=== PATIENT | male | born 1945 | race Caucasian/White ===

== ENCOUNTER 2017-12-25 16:50 | Observation (INO) ==
[2017-12-25] MEDS ORDERED: 0.9 % Sodium Chloride 500 ML IVC ONE (17:20)
--- NOTE | 2017-12-25 17:36 | Emergency Department Note ---
Disposition Clinical Impression: Metabolic acidosis, Hyperkalemia, Acute on chronic renal insufficiency Disposition: Admitted As Inpatient Condition: Fair Time of Disposition: 19:25 Recheck wound or abnormal lab - General Chief Complaint: ED Recheck/Abnormal Lab/Rx Stated Complaint: ABNORMAL TEST Time Seen by Provider: 12/25/17 16:56 Source: patient Limitations: no limitations Nursing Notes Reviewed: Yes Vital Signs Reviewed: Yes - History of Present Illness HPI Narrative: 72-year-old male history of hypertension, COPD, diabetes, hyperlipidemia, presents complaining of lab abnormality. Patient states that he has not had any complaints initially was feeling a little bit shaky dehydrated this week. Patient has been supplemented with potassium as well. For cramps. The patient states that he has had his blood checked by [facility] nurse practitioner and they said that his potassium was 6.7, patient denies chest pain shortness of breath abdominal pain. He is not having dysuria or hematuria he has had no recent fevers. He came in for this evaluation he does have some known chronic kidney disease, is on multiple medications for his multiple medical conditions. Pt Subjective Complaint: abnormal lab(s) (K 6.7) Initial Visit (ago): day(s) Symptoms Since Prior Visit: no new symptoms Associated symptoms: none - Related Data Home Medications Medication Instructions Recorded Confirmed Albuterol Sulfate [Ventolin Hfa] 2 puff IH Q4H PRN 12/25/17 12/25/17 Doxazosin [Cardura] 4 mg PO HS 12/25/17 12/25/17 Glimepiride [Amaryl] 4 mg PO DAILY 12/25/17 12/25/17 Lisinopril [Zestril] 20 mg PO BID 12/25/17 12/25/17 Lovastatin [Lovastatin] 40 mg PO HS 12/25/17 12/25/17 Metoprolol Succinate 200 mg PO DAILY 12/25/17 12/25/17 Pioglitazone HCl [Actos] 30 mg PO DAILY 12/25/17 12/25/17 Spironolactone [Aldactone] 50 mg PO DAILY 12/25/17 12/25/17 Allergies Allergy/AdvReac Type Severity Reaction Status Date / Time No Known Allergies Allergy Verified 12/25/17 18:37 All systems ED: reviewed and negative except as stated. Review of Systems: As Per HPI Constitutional: Denies: fever, chills Eyes: Denies: eye pain ENT ED: Denies: ear pain Cardiovascular: Denies: chest pain Respiratory: Denies: cough Gastrointestinal: Denies: abdominal pain Genitourinary: Denies: urgency, dysuria Musculoskeletal: Denies: back pain Integumentary: Denies: rash Neurological: Denies: headache Psychiatric: Denies: anxiety, depression Endocrine: Denies: fatigue Past Medical History - Past Medical History Attestation: Yes The following information was validated with the patient. Source: patient Medical history: Reports: cancer, COPD, hypertension Surgical history: Reports: other Psychiatric history: Reports: no psych history - Social History Smoking Status: Never smoker Alcohol use: Reports: occasionally Drug use: Reports: none Physical Exam Constitutional: NAD, vital signs reviewed and wnl Eyes: PERRLA, sclera anicteric ENT & Mouth: MMM Neck: normal inspection, neck is supple Resp: CTA bilaterally, no resp distress CV: RRR, no m/g/r GI: normal inspection, soft, obese, no guarding or rigidity Neuro: A&O3, CNII-XII grossly intact, MANZANO Skin: on limited exam, skin intact with no rashes or lesions - General Limitations: no limitations Course Course Narrative: Patient acute distress at this time will repeat chest x-ray, basic lab work recheck his potassium and electrolytes, also checking an EKG to see if he is evidence of hyperkalemia on his EKG. - Reevaluation(s) Reevaluation #1: Patient did have hyperkalemia still 6.6, the patient will be given calcium gluconate insulin with dextrose albuterol and sodium bicarbonate to correct his K, and may be due to supplementation but he also has acidemia, at the VBG and a lactate, the patient has a acute on chronic kidney injury with a 2.1 creatinine its worse than earlier today, I did consult nephrology and spoke with Dr. Goss feel will see the patient tomorrow, patient will be admitted to the hospitalist service Dr. Madrigal accepting Time: 19:24 - Consultations Consultation #1: Ana Paula to see inpatient Vital Signs Temperature 98.0 F 12/25/17 16:51 Pulse Rate 88 12/25/17 16:51 Respiratory Rate 22 12/25/17 16:51 Blood Pressure 207/64 12/25/17 16:51 O2 Sat by Pulse Oximetry 93 12/25/17 16:51 Temperature 98.0 F 12/25/17 16:58 Pulse Rate 88 12/25/17 16:58 Respiratory Rate 22 12/25/17 16:58 Blood Pressure 207/64 12/25/17 16:58 O2 Sat by Pulse Oximetry 93 12/25/17 16:58 Oxygen Delivery Oxygen Delivery Room Air Recheck wound or abnormal lab - Medical Records Medical records reviewed: Yes I reviewed the patient's medical records. - Lab Data Lab results reviewed: Yes I reviewed the patient's lab results. Result diagrams: 12/25/17 17:20 12/25/17 17:20 Lab Results 12/25/17 12/25/17 12/25/17 Range/Units 17:20 17:20 18:26 WBC 9.5 (4.3-11.1) K/mcL RBC 3.83 L (4.19-5.50) M/mcL Hgb 11.9 L (12.9-16.9) g/dL Hct 38.1 (37.5-50.1) % MCV 99.5 (83.0-100.0) fL MCH 31.1 (28.0-33.3) pg MCHC 31.2 L (31.6-35.5) g/dL RDW 15.5 H (11.5-14.5) % Plt Count 192 (140-400) K/mcL MPV 10.0 (9.4-12.4) fL Immature Gran % 0.4 (0-4) % Seg Neutrophils % 65.6 % Lymphocytes % 23.9 % Monocytes % 7.7 % Eosinophils % 2.0 % Basophils % 0.4 % Neutrophils # 6.2 (1.6-8.9) K/mcL Lymphocytes # 2.3 (0.6-4.6) K/mcL Monocytes # 0.7 (0.0-1.3) K/mcL Eosinophils # 0.2 (0.0-0.6) K/mcL Basophils # 0.0 (0.0-0.2) K/mcL Sodium 135 L (136-145) mEq/L Potassium 6.6 H* (3.5-5.1) mEq/L Chloride 115 H (98-107) mEq/L Carbon Dioxide 14 L (23-29) mEq/L BUN 40 H (8-23) mg/dL Creatinine 2.11 H (0.70-1.30) mg/dL Est GFR ( Amer) 38 L (> 60) Est GFR (Non-Af Amer) 31 L (> 60) BUN/Creatinine Ratio 19 (6-26) Glucose 102 (70-105) mg/dL Calculated Osmolality 290 (280-300) Lactic Acid 0.6 (0.5-2.2) mmol/L Calcium 9.4 (8.6-10.3) mg/dL Troponin I < 0.03 (< 0.04) ng/mL - Radiology Data Radiology results reviewed: Yes I reviewed the patient's radiology results. Chest X-Ray 12/25/17 17:20 IMPRESSION: Cardiomegaly without acute process. D/ / 12/25/2017 17:35:09 Familia Acevedo MD / arsen Interpreting Provider: Familia Acevedo MD - EKG Data EKG attestation: Yes I reviewed and interpreted this EKG. EKG shows normal: sinus rhythm Rate: normal (70 bpm MI 173 QRS 133 QTc [address] segment changes, right bundle branch block, no Peaked T waves.)
[2017-12-25 17:56] LABS: Basophils % 0.4 %; Eosinophils # 0.2 K/mcL (0.0-0.6); Hematocrit 38.1 % (37.5-50.1); Hemoglobin 11.9 g/dL (12.9-16.9); Immature Granulocytes % 0.4 % (0-4); Lymphocytes # 2.3 K/mcL (0.6-4.6); Lymphocytes % 23.9 %; Mean Corpuscular HGB Conc 31.2 g/dL (31.6-35.5); Mean Corpuscular Hemoglobin 31.1 pg (28.0-33.3); Mean Corpuscular Volume 99.5 fL (83.0-100.0); Monocytes # 0.7 K/mcL (0.0-1.3); Monocytes % 7.7 %; Neutrophils # 6.2 K/mcL (1.6-8.9); Platelet Count 192 K/mcL (140-400); Red Blood Count 3.83 M/mcL (4.19-5.50); Red Cell Distribution Width 15.5 % (11.5-14.5); Segmented Neutrophils % 65.6 %
[2017-12-25 18:04] LABS: Troponin I < 0.03 ng/mL (< 0.04)
[2017-12-25 18:08] LABS: BUN/Creatinine Ratio 19 (6-26); Blood Urea Nitrogen 40 mg/dL (8-23); Calcium 9.4 mg/dL (8.6-10.3); Carbon Dioxide 14 mEq/L (23-29); Chloride 115 mEq/L (98-107); Glucose 102 mg/dL (70-105); Osmolality,Calculated 290 (280-300); Potassium 6.6 mEq/L (3.5-5.1); Sodium 135 mEq/L (136-145); eGFR For African Americans 38 (> 60); eGFR For Non-African Americans 31 (> 60)
[2017-12-25] MEDS ORDERED: Insulin Human Regular 10 UNIT in 0.9 % Sodium Chloride 10 ML IV ONE (18:14)
[2017-12-25] MEDS ORDERED: Sodium Bicarbonate 50 MEQ/50 ML VIAL IVP ONE (18:14)
[2017-12-25] MEDS ORDERED: Albuterol Neb 1.25 MG/3 ML VIAL IH ONE (18:14)
[2017-12-25] MEDS ORDERED: *HR* Dextrose 50 % in Water (Syg) 50 ML SYRINGE IVP ONE (18:16)
[2017-12-25 18:41] LABS: VBG HCO3 13 mEq/L (21-27); VBG PCO2 32 mmHg (41-51); VBG PH 7.23 pH Units (7.32-7.42); VBG PO2 168 mmHg (25-50)
--- NOTE | 2017-12-25 18:59 | Emergency Department Note ---
Disposition Clinical Impression: Hyperkalemia, Metabolic acidosis, Acute on chronic renal insufficiency Disposition: Admitted As Inpatient Condition: Fair General Adult HPI - General Chief complaint: ED Recheck/Abnormal Lab/Rx Stated complaint: ABNORMAL TEST Time Seen by Provider: 12/25/17 16:56 Source: patient Limitations: no limitations - History of Present Illness Pain Scale: 0 - Related Data Home Medications Medication Instructions Recorded Confirmed Albuterol Sulfate [Ventolin Hfa] 2 puff IH Q4H PRN 12/25/17 12/25/17 Doxazosin [Cardura] 4 mg PO HS 12/25/17 12/25/17 Glimepiride [Amaryl] 4 mg PO DAILY 12/25/17 12/25/17 Lisinopril [Zestril] 20 mg PO BID 12/25/17 12/25/17 Lovastatin [Lovastatin] 40 mg PO HS 12/25/17 12/25/17 Metoprolol Succinate 200 mg PO DAILY 12/25/17 12/25/17 Pioglitazone HCl [Actos] 30 mg PO DAILY 12/25/17 12/25/17 Spironolactone [Aldactone] 50 mg PO DAILY 12/25/17 12/25/17 Allergies Allergy/AdvReac Type Severity Reaction Status Date / Time No Known Allergies Allergy Verified 12/25/17 18:37 Past Medical History - Past Medical History Medical history: Reports: cancer, COPD, hypertension Surgical history: Reports: other Psychiatric history: Reports: no psych history - Social History Smoking Status: Never smoker Alcohol use: Reports: occasionally Drug use: Reports: none Physical Exam - General Limitations: no limitations Course Vital Signs Temperature 98.0 F 12/25/17 16:51 Pulse Rate 88 12/25/17 16:51 Respiratory Rate 22 12/25/17 16:51 Blood Pressure 207/64 12/25/17 16:51 O2 Sat by Pulse Oximetry 93 12/25/17 16:51 Temperature 98.0 F 12/25/17 16:58 Pulse Rate 88 12/25/17 16:58 Respiratory Rate 10 12/25/17 19:11 Blood Pressure 167/66 12/25/17 19:11 O2 Sat by Pulse Oximetry 93 12/25/17 16:58 Oxygen Delivery Oxygen Delivery Nasal Cannula Medical Decision Making - Lab Data Result diagrams: 12/25/17 17:20 12/25/17 17:20 Lab Results 12/25/17 12/25/17 12/25/17 Range/Units 17:20 17:20 18:26 WBC 9.5 (4.3-11.1) K/mcL RBC 3.83 L (4.19-5.50) M/mcL Hgb 11.9 L (12.9-16.9) g/dL Hct 38.1 (37.5-50.1) % MCV 99.5 (83.0-100.0) fL MCH 31.1 (28.0-33.3) pg MCHC 31.2 L (31.6-35.5) g/dL RDW 15.5 H (11.5-14.5) % Plt Count 192 (140-400) K/mcL MPV 10.0 (9.4-12.4) fL Immature Gran % 0.4 (0-4) % Seg Neutrophils % 65.6 % Lymphocytes % 23.9 % Monocytes % 7.7 % Eosinophils % 2.0 % Basophils % 0.4 % Neutrophils # 6.2 (1.6-8.9) K/mcL Lymphocytes # 2.3 (0.6-4.6) K/mcL Monocytes # 0.7 (0.0-1.3) K/mcL Eosinophils # 0.2 (0.0-0.6) K/mcL Basophils # 0.0 (0.0-0.2) K/mcL Sodium 135 L (136-145) mEq/L Potassium 6.6 H* (3.5-5.1) mEq/L Chloride 115 H (98-107) mEq/L Carbon Dioxide 14 L (23-29) mEq/L BUN 40 H (8-23) mg/dL Creatinine 2.11 H (0.70-1.30) mg/dL Est GFR ( Amer) 38 L (> 60) Est GFR (Non-Af Amer) 31 L (> 60) BUN/Creatinine Ratio 19 (6-26) Glucose 102 (70-105) mg/dL Calculated Osmolality 290 (280-300) Lactic Acid 0.6 (0.5-2.2) mmol/L Calcium 9.4 (8.6-10.3) mg/dL Troponin I < 0.03 (< 0.04) ng/mL Attestation Statement - Attestation Attestation: I examined this patient and my medical decision-making was reviewed with the Resident Physician, Dr. Velarde. I agree with the documented findings, disposition and treatment plan as described except to the extent set forth below. Patient is 72-year-old white male who presents to emergency department been sent here for an elevated potassium. PCPs office. Patient has no physical complaints today states he has been feeling fine. Patient also states he has been taking potassium supplements that he bought at the grocery store for the past 2 weeks for leg cramping he has been experiencing bilateral lower extremities. Patient has never had an elevated potassium in the past but does have some underlying chronic kidney disease. I agree with patient's physical exam findings as documented. Vital signs are stable with mildly elevation in blood pressure on arrival. His EKG was normal sinus rhythm with no acute changes and no QRS widening or changes consistent with hyperkalemia. Patient had lab evaluation performed which showed a worsening of his chronic kidney disease with metabolic acidosis and hyperkalemia. Patient will be treated with patient's appropriate for hyperkalemia and continued on cardiac monitoring. Due to chronic kidney disease we well admit him to the hospital for monitored evaluation and really check of his potassium. Case was discussed with the hospitalist to accepted patient for further evaluation and management.
[2017-12-25] MEDS ORDERED: Acetaminophen 325 MG TABLET PO PRN (19:56)
[2017-12-25] MEDS ORDERED: Naloxone 0.4 MG/ML INJ IVP PRN (19:56)
[2017-12-25] MEDS ORDERED: *HR* Dextrose 50 % in Water (Syg) 50 ML SYRINGE IVP PRN (19:59)
[2017-12-25] MEDS ORDERED: Dextrose Gel 15 GM/37.5 ML TUBE PO PRN ×2 (19:59)
[2017-12-25] MEDS ORDERED: D5% in Water 1,000 ML IVC PRN (19:59)
[2017-12-25] MEDS ORDERED: 0.9 % Sodium Chloride 1,000 ML IVC SCH (20:00)
--- NOTE | 2017-12-25 20:31 | Internal Med History&Physical ---
Date of Encounter: 12/25/17 Time of Encounter: 19:00 Internal Medicine - H&P: HPI Chief complaint: High potassium level Admitted From: Home Plans for Post Hospital Care: Home History of present illness: Mr. Casper is a 72 year old male send from PCP office to ER for high potassium level. Past medical history is significant for diabetes, hypertension , hyperlipidemia, COPD Patient had regular follow-up with PCP today. He was found potassium high and referred to ER for further management. Patient recently took [id number] potassium pills for leg cramping in last 10 days. Patient denies chest pain, shortness of breath, palpitation, abdominal pain, nausea, or vomiting. He has no further complaint. In the emergency room, potassium 6.6. Patient was given calcium IV, albuterol nebulizer, insulin with glucose, and bicarbonate in the emergency room. EKG shows no typical high T-wave. Patient was admitted for further management. I have discussed with patient regarding CODE STATUS. Patient clearly told me he does not want CPR but accept intubation, DNR CCA placed. Past Med Surg Social Fam HX - Past Medical History Medical history: cancer, COPD, diabetes, glaucoma, hyperlipidemia, hypertension Additional medical history: see attached records. 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 Psychiatric history: no psych history - Past Surgical History Surgical History: other Additional surgical history: rectal sx, carotid endarectomy - Social History Smoking Status: Former smoker Smokeless Tobacco Status: No Alcohol use: occasionally Drug use: none - Family History Mother History Unknown: Yes Internal Medicine - H&P: Meds Albuterol Sulfate [Ventolin Hfa] 2 puff IH Q4H PRN 12/25/17 [History] Doxazosin [Cardura] 4 mg PO HS 12/25/17 [History] Glimepiride [Amaryl] 4 mg PO DAILY 12/25/17 [History] Lisinopril [Zestril] 20 mg PO BID 12/25/17 [History] Lovastatin [Lovastatin] 40 mg PO HS 12/25/17 [History] Metoprolol Succinate 200 mg PO DAILY 12/25/17 [History] Pioglitazone HCl [Actos] 30 mg PO DAILY 12/25/17 [History] Spironolactone [Aldactone] 50 mg PO DAILY 12/25/17 [History] 3 Allergy/AdvReac Type Severity Reaction Status Date / Time No Known Allergies Allergy Verified 12/25/17 18:37 All Systems PM: A 10-system review of systems was performed and is negative for pertinent findings except as documented above in the HPI. - Constitutional Vitals: Temp Pulse Resp BP Pulse Ox 98.0 F 88 10 167/66 93 12/25/17 16:58 12/25/17 16:58 12/25/17 19:11 12/25/17 19:11 12/25/17 16:58 General appearance: Present: A&O X 3, no acute distress, obese, answers questions appropriately - Head Head exam: Present: atraumatic, normocephalic - Eye Eye exam: Present: PERRL, conjuntiva pink, sclera anicteric Pupils: Present: PERRL - Neck Neck exam general surgery: Present: supple, trachea midline. Absent: lymphadenopathy - Respiratory Respiratory exam: Present: CTAB. Absent: accessory muscle use, rales, rhonchi, wheezes - Cardiovascular Cardiovascular exam: Present: RRR, +S1, +S2. Absent: diastolic murmur, gallop, rubs, systolic murmur - GI/Abdominal GI/Abdominal exam: Present: normal bowel sounds, soft, no peritoneal signs. Absent: distended, tenderness - Extremities Exam Extremities exam: Present: pedal edema (Bilateral mild to moderate pedal edema) , warm, radial pulses palpable and symmetrical. Absent: calf tenderness, cyanotic - Neurological Exam Neurological exam: Present: CN II-XII intact, oriented X3, no focal deficits. Absent: pronater drift, facial droop, speech deficit - Skin Skin exam: Present: dry, intact Internal Med - H&P Results - Labs CBC & Chem 7: 12/25/17 17:20 12/25/17 17:20 - ABG Interpretation ABG results: 12/25/17 18:38 VBG pH 7.23 L VBG pCO2 32 L VBG pO2 168 H VBG HCO3 13 L - EKG Data -: EKG Interpreted by Myself (RBBB) EKG shows normal: sinus rhythm Rate: normal - Assessment and plan (1) Diabetes mellitus Current Visit: Yes Status: Acute Assessment and plan: Place patient on sliding scale insulin coverage. Qualifiers: Diabetes mellitus type: type 2 Diabetes mellitus care home insulin use: without dedicated intermodal truck driver use Diabetes mellitus complication status: with kidney complications Diabetes mellitus complication detail: with chronic kidney disease Chronic kidney disease stage: stage 3 (moderate) Qualified Code(s): E11.22 - Type 2 diabetes mellitus with diabetic chronic kidney disease; N18.3 - Chronic kidney disease, stage 3 (moderate) (2) Hypertension Current Visit: Yes Status: Acute Assessment and plan: We will hold the patient's home medication lisinopril and spironolactone because of hyperkalemia. Place patient on hydralazine by mouth and IV as needed. Continue home medication metoprolol. Closely monitor BP. Qualifiers: Hypertension type: essential hypertension Qualified Code(s): I10 - Essential (primary) hypertension (3) COPD (chronic obstructive pulmonary disease) Current Visit: Yes Status: Acute Assessment and plan: No wheezing. Continue home medications. Continue oxygen as needed Qualifiers: COPD type: emphysema Emphysema type: unspecified Qualified Code(s): J43.9 - Emphysema, unspecified (4) DVT prophylaxis Current Visit: Yes Status: Acute Assessment and plan: Heparin subcutaneously (5) Acute on chronic renal insufficiency Current Visit: Yes Status: Acute Assessment and plan: Patient has mild elevated creatinine from baseline. Will give patient low rate IV fluid with lactated Ringer's solution. Avoid nephrotoxic medications. Follow-up renal function in a.m. (6) Hyperkalemia Current Visit: Yes Status: Acute Assessment and plan: Patient has hyperkalemia, probably due to by mouth potassium supplement together with spironolactone use. Patient was treated in emergency room already. Will give patient Kayexalate by mouth once. Follow potassium level. Nephrology consult was informed. (7) Metabolic acidosis Current Visit: Yes Status: Acute Assessment and plan: Bicarbonate 14 on BMP. Patient was given bicarbonate IV in ER. Will continue lactated Ringer IV fluid. Follow-up BMP. Nephrology consult. - Time Spent With Patient Total time spent is greater than 50% in coordination of care (as documented) at patient's floor/unit and/or counseling patient: 40 minutes Greater than 35 minutes
[2017-12-25] MEDS ORDERED: Ringers Solution, Lactated 1,000 ML IVC SCH (20:45)
[2017-12-25 22:41] LABS: Bilirubin,Urine Negative (Negative); Blood,Urine Negative (Negative); Clarity,Urine Clear (Clear); Color,Urine Yellow (Yellow); Glucose,Urine (UA) Normal (Normal); Ketones,Urine Negative (Negative); Leukocyte Esterase,Urine Negative (Negative); Nitrite,Urine Negative (Negative); PH,Urine 5.5 pH Units (5.0-8.0); Protein,Urine Negative (Neg-Trace); Urobilinogen,Urine Normal (Normal)
[2017-12-25] MEDS: Insulin LISPRO 300 UNITS/3 ML VIAL SQ SCH (23:37)
[2017-12-26] MEDS: hydrALAZINE 25 MG TABLET PO SCH ×3 (00:04→16:44)
[2017-12-26] MEDS: *HR* Heparin 5,000 UNIT/ML VIAL SQ SCH ×2 (05:11→16:44)
[2017-12-26 05:48] LABS: Calcium 8.9 mg/dL (8.6-10.3); Potassium 5.8 mEq/L (3.5-5.1)
[2017-12-26] MEDS: Metoprolol XL (24 HR) Succ 50 MG TAB.ER.24H PO SCH (08:20)
[2017-12-26] MEDS: Insulin LISPRO 300 UNITS/3 ML VIAL SQ SCH ×4 (08:22→21:20)
--- NOTE | 2017-12-26 08:46 | Internal Med Progress Note ---
Date of Encounter: 12/26/17 Time of Encounter: 08:40 - Assessment and plan (1) Hyperkalemia Current Visit: Yes Status: Acute Assessment and plan: Patient has hyperkalemia, probably due to potassium supplement and spironolactone use. Patient received calcium gluconate, insulin and D50, and sodium bicarb in ER. Got kayexalate overnight. Will give another dose of kayexalate today. Repeat BMP. Appreciate renal recs (2) Metabolic acidosis Current Visit: Yes Status: Acute Assessment and plan: Bicarbonate 14 on BMP. Patient was given bicarbonate IV in ER. Will continue lactated Ringer IV fluid. Follow-up BMP. Nephrology consult. (3) Acute on chronic renal insufficiency Current Visit: Yes Status: Acute Assessment and plan: Patient has mild elevated creatinine from baseline. Will give patient low rate IV fluid with lactated Ringer's solution. Avoid nephrotoxic medications. Follow-up renal function in a.m. (4) Diabetes mellitus Current Visit: Yes Status: Acute Assessment and plan: Place patient on sliding scale insulin coverage. Qualifiers: Diabetes mellitus type: type 2 Diabetes mellitus fdc insulin use: without fdc use Diabetes mellitus complication status: with kidney complications Diabetes mellitus complication detail: with chronic kidney disease Chronic kidney disease stage: stage 3 (moderate) Qualified Code(s): E11.22 - Type 2 diabetes mellitus with diabetic chronic kidney disease; N18.3 - Chronic kidney disease, stage 3 (moderate) (5) Hypertension Current Visit: Yes Status: Chronic Assessment and plan: We will hold the patient's home medication lisinopril and spironolactone because of hyperkalemia. Place patient on hydralazine by mouth and IV as needed. Continue home medication metoprolol. Closely monitor BP. Qualifiers: Hypertension type: essential hypertension Qualified Code(s): I10 - Essential (primary) hypertension (6) COPD (chronic obstructive pulmonary disease) Current Visit: Yes Status: Acute Assessment and plan: No wheezing. Continue home medications. Continue oxygen as needed Qualifiers: COPD type: emphysema Emphysema type: unspecified Qualified Code(s): J43.9 - Emphysema, unspecified (7) DVT prophylaxis Current Visit: Yes Status: Acute Assessment and plan: Heparin subcutaneously - Time Spent With Patient Total time spent is greater than 50% in coordination of care (as documented) at patient's floor/unit and/or counseling patient: - Subjective Interval history: No acute events overnight - Constitutional Vitals: Temp Pulse Resp BP Pulse Ox 98.6 F 80 18 157/66 97 12/26/17 07:44 12/26/17 07:44 12/26/17 07:44 12/26/17 07:44 12/26/17 07:44 General appearance: Present: A&O X 3, no acute distress, obese, answers questions appropriately Exam: Obese elederly male - Head Head exam: Present: atraumatic, normocephalic - Eye Eye exam: Present: PERRL, conjuntiva pink, sclera anicteric Pupils: Present: PERRL - Neck Neck exam general surgery: Present: supple, trachea midline. Absent: lymphadenopathy - Respiratory Respiratory exam: Present: CTAB. Absent: accessory muscle use, rales, rhonchi, wheezes - Cardiovascular Cardiovascular exam: Present: RRR, +S1, +S2. Absent: diastolic murmur, gallop, rubs, systolic murmur - GI/Abdominal GI/Abdominal exam: Present: normal bowel sounds, soft, no peritoneal signs. Absent: distended, tenderness - Extremities Exam Extremities exam: Present: warm, radial pulses palpable and symmetrical. Absent : calf tenderness, cyanotic, pedal edema - Neurological Exam Neurological exam: Present: CN II-XII intact, oriented X3, no focal deficits. Absent: pronater drift, facial droop, speech deficit - Skin Skin exam: Present: dry, intact Internal Medicine: Result - Labs CBC & Chem 7: 12/25/17 17:20 12/26/17 04:43 Labs: BMP 12/26/17 04:43 Sodium 138 Potassium 5.8 H Chloride 116 H Carbon Dioxide 16 L BUN 40 H Creatinine 2.01 H Glucose 153 H Calcium 8.9 Urine 12/25/17 Range/Units 22:25 Urine Color Yellow (Yellow) Urine Clarity Clear (Clear) Urine pH 5.5 (5.0-8.0) pH Units Ur Specific [place] 1.020 (1.010-1.025) Urine Protein Negative (Neg-Trace) mg/dL Urine Glucose (UA) Normal (Normal) mg/dL Consult Discharge Plan - Plan Referrals: Sam,Julisa Roque CNP [Primary Care Provider] -
--- NOTE | 2017-12-26 11:19 | Nephrology Consult Note ---
Date of Encounter: 12/26/17 Time of Encounter: 08:30 Assessment and Plan (1) Hyperkalemia Current Visit: Yes Status: Acute Hyperkalemia is most likely from both exogenous XS intake, plus the MARIA LUZ and K+ sparing diuretic. The metabolic acidosis and hyperglycemia both can contribute to hyperkalemia; and there is a chance that he may have developed an RTA. Often diabetics can develop a Type IV RTA (the hyperkalemic type) and this would explain both the metabolic acidosis and hyperkalemia. His long standing CKD stage III and HTN have been well managed for quite time based upon the outpt progress notes that I accessed via eCW, but now that he has more risks for hyperkalemia, I would recommend stopping the spironolactone. If his renal function stabilizes then it would be reasonable to resume the MARIA LUZ (only if he has no further hyperkalemia). Last night in the ER, I was consulted and discussed his care with the ER attending; since the pt did not have EKG findings of hyperacute T-wave, he did not urgently need dialysis and plus his serum K+ responded to medical intervention. 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 Though the hyperkalemia has not fully resolved. I would recommend starting oral NaBicarb to address the acidosis, which will help shift the serum K+ back into the intracellular space. The main SE to monitor for will be peripheral edema, which is preexisting, and has been trending worse of the last few months, he reported. I recommend checking a renal work up to explore for any potential GN. I'll defer any cardiac or liver work up (as these conditions could also induce edema), if indicated, to his primary team. Continue to follow a renal conservative and protective strategy by avoiding nephrotoxins, dosing renally cleared Rx by eGFR and strict I/Os, daily weights and a very low K+ (i.e., Renal) diet. Thank you for consulting the [facility] group. I will follow with you. (2) SONY (acute kidney injury) Current Visit: Yes Status: Acute See above (3) Metabolic acidosis Current Visit: Yes Status: Acute See above (4) CKD (chronic kidney disease), stage III Current Visit: Yes Status: Chronic See above (5) Diabetic kidney disease Current Visit: Yes Status: Chronic See above Qualifiers: Diabetes mellitus type: type 2 Qualified Code(s): E11.21 - Type 2 diabetes mellitus with diabetic nephropathy (6) Hypertension Current Visit: Yes Status: Chronic See above Qualifiers: Hypertension type: essential hypertension Qualified Code(s): I10 - Essential (primary) hypertension History of Present Illness - Reason for Consult Consult date: 12/25/17 Acute Kidney Injury, Chronic Kidney Disease, hyperkalemia Requesting physician: Eliu Girard - Chief Complaint Hyperkalemia, SONY on CKD III - History of Present Illness Brenton Casper is a very pleasant 72 y/o Gentleman with a pmh of longstanding T2DM, HTN, obesity, CKD stage III and et al who presented with worsening fatigue and lab findings of hyperkalemia. 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 Last night in the ER, I was consulted and discussed his care with the ER attending; since the pt did not have EKG findings of hyperacute T-wave, he did not urgently need dialysis and plus his serum K+ responded to medical intervention. He denied taking NSAIDs, but a few years ago he was taking them until his PCP stopped. He voiced that he has not been having N/V/D or poor oral intake. He has been consuming more tomatoes recently and then developed "cramps" in his feet. So he started taking OTC potassium supplements, he said. He then developed diffuse muscular fatigue and was seen by his PCP which led to the lab findings. He was accompanied by his relative sitting in the bedside chair. He is a former smoker but previously he had not required O2 per NC. He reported having a good appetite today and is now feeling a little better. Past Med Surg Social Fam HX - Past Medical History Medical history: cancer, COPD, hypertension Additional medical history: see attached records. 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 Psychiatric history: no psych history - Past Surgical History Surgical History: other Additional surgical history: rectal sx, carotid endarectomy - Social History Smoking Status: Never smoker Smokeless Tobacco Status: No Alcohol use: occasionally Drug use: none - Family History Mother History Unknown: Yes Medications and Allergies Albuterol Sulfate [Ventolin Hfa] 2 puff IH Q4H PRN 12/25/17 [History] Doxazosin [Cardura] 4 mg PO HS 12/25/17 [History] Glimepiride [Amaryl] 4 mg PO DAILY 12/25/17 [History] Lisinopril [Zestril] 20 mg PO BID 12/25/17 [History] Lovastatin [Lovastatin] 40 mg PO HS 12/25/17 [History] Metoprolol Succinate 200 mg PO DAILY 12/25/17 [History] Pioglitazone HCl [Actos] 30 mg PO DAILY 12/25/17 [History] Spironolactone [Aldactone] 50 mg PO DAILY 12/25/17 [History] 3 Allergy/AdvReac Type Severity Reaction Status Date / Time No Known Allergies Allergy Verified 12/25/17 18:37 Review of Systems All Systems: reviewed and no additional remarkable complaints except as stated Exam - Vital Signs Vital signs: Initial Vital Signs Temp Pulse Resp BP Pulse Ox 98.0 F 88 22 207/64 93 12/25/17 16:51 12/25/17 16:51 12/25/17 16:51 12/25/17 16:51 12/25/17 16:51 Vital Signs - Last 8 Hours Temp Pulse Resp BP Pulse Ox 12/26/17 07:44 98.6 F 80 18 157/66 97 12/26/17 04:54 98.7 F 95 18 166/75 98 Intake and Output 12/25/17 12/26/17 12/26/17 23:59 07:59 15:59 Intake Total 300 / 800 800 / 800 480 / 480 Output Total 150 / 150 Balance 150 / 650 800 / 800 480 / 480 Intake: Oral 300 / 300 800 / 800 480 / 480 Output: Urine 150 / 150 Other: Meal Breakfast Percent of Meal Consumed 100% Weight 120.8 kg Blood Glucose* 74 140 Patient Weight 12/26/17 23:59 Weight 120.8 kg - General Appearance General appearance: well-developed, well-nourished, appears started age, obese EENT: ATNC, PERRL, mucous membranes moist Neck: supple Respiratory: clear Cardiology: edema (trace to 1+ pretibial pitting edema b/l), regular rate, regular rhythm, normal S1, normal S2 Gastrointestinal: normoactive bowel sounds, no tenderness, no guarding Integumentary: warm and dry Neurologic: no focal deficit, no asterixis, alert and oriented x3 Musculoskeletal: no deformities, no erythema, no cyanosis Psychiatric: mood/affect appropriate, cooperative Results - Lab Results 12/25/17 17:20 12/26/17 04:43 Most recent lab results Calcium 8.9 mg/dL (8.6-10.3) 12/26/17 04:43 I reviewed the progress notes, and outpatient PCP notes, labs, med lists, vitals and imaging. Consult Discharge Plan - Plan Referrals: Julisa Vargas CNP [Primary Care Provider] -
[2017-12-26 22:30] LABS: Bilirubin,Urine Negative (Negative); Blood,Urine Negative (Negative); Clarity,Urine Clear (Clear); Color,Urine Yellow (Yellow); Glucose,Urine (UA) Normal (Normal); Ketones,Urine Negative (Negative); Leukocyte Esterase,Urine Negative (Negative); Nitrite,Urine Negative (Negative); Protein,Urine Negative (Neg-Trace); Specific Gravity,Urine 1.015 (1.010-1.025); Urobilinogen,Urine Normal (Normal)
[2017-12-26 22:38] LABS: Potassium,Urine 16.9 mEq/L; Sodium, Urine 55.3 mEq/L
[2017-12-27] MEDS: hydrALAZINE 25 MG TABLET PO SCH ×2 (00:48→09:05)
[2017-12-27 03:28] LABS: Basophils % 0.5 %; Eosinophils # 0.2 K/mcL (0.0-0.6); Eosinophils % 2.7 %; Hematocrit 34.1 % (37.5-50.1); Hemoglobin 10.8 g/dL (12.9-16.9); Immature Granulocytes % 0.1 % (0-4); Lymphocytes # 2.2 K/mcL (0.6-4.6); Lymphocytes % 27.7 %; Mean Corpuscular HGB Conc 31.7 g/dL (31.6-35.5); Mean Corpuscular Hemoglobin 30.9 pg (28.0-33.3); Mean Corpuscular Volume 97.4 fL (83.0-100.0); Monocytes # 0.7 K/mcL (0.0-1.3); Monocytes % 9.3 %; Neutrophils # 4.6 K/mcL (1.6-8.9); Platelet Count 133 K/mcL (140-400); Red Cell Distribution Width 15.4 % (11.5-14.5); Segmented Neutrophils % 59.7 %
[2017-12-27 03:48] LABS: Calcium 8.4 mg/dL (8.6-10.3); Potassium 5.1 mEq/L (3.5-5.1)
[2017-12-27] MEDS: *HR* Heparin 5,000 UNIT/ML VIAL SQ SCH (04:26)
--- NOTE | 2017-12-27 08:11 | Discharge Summary ---
Orders not resulted at time of discharge: Pending orders 12/26/17 12:45 SARAH Titer by IFA Routine Complement Component 3 Routine Complement Component 4 Routine Immunoelectrophoresis Routine [place] Lambda Qnt FLC w Ratio Routine MPO/PR3 (ANCA) Antibodies Routine 12/28/17 04:00 Basic Metabolic Panel AM 0400 12/29/17 04:00 Basic Metabolic Panel AM 0400 12/30/17 04:00 Basic Metabolic Panel AM 0400 12/31/17 04:00 Basic Metabolic Panel AM 04001/01/18 04:00 Basic Metabolic Panel AM 0400 Date of Encounter: 12/27/17 Time of Encounter: 08:00 - Discharge Diagnosis (1) Hyperkalemia Priority: Primary Status: Acute Assessment and Plan: 72 year old male send from PCP office to ER for high potassium level. Past medical history is significant for diabetes, hypertension, hyperlipidemia, COPD. Patient had regular follow-up with PCP and was found to have high potassium at 6.6 and referred to ER for further management. Patient recently took [id number] potassium pills for leg cramping in last 10 days. He says he had been taking potassium supplements for about 6 weeks. He was given a hyperkalemia cocktail of calcium gluconate, D50, insulin and sodium bicarb and kayexalate. Potassium levels trended down. He was seen by renal as well and started on sdoium bicarb tablets. With resolution of his hyperkalemia, he was discharged. He was noted to be hypoxic with CT showing bullous changes. He was therefore discharged on home oxygen. Spironolactone was held on discharge (2) Metabolic acidosis Priority: Secondary Status: Acute (3) Acute on chronic renal insufficiency Priority: Secondary Status: Acute (4) Diabetes mellitus Priority: Secondary Status: Acute Qualifiers: Diabetes mellitus type: type 2 Diabetes mellitus alf insulin use: without alf use Diabetes mellitus complication status: with kidney complications Diabetes mellitus complication detail: with chronic kidney disease Chronic kidney disease stage: stage 3 (moderate) Qualified Code(s): E11.22 - Type 2 diabetes mellitus with diabetic chronic kidney disease; N18.3 - Chronic kidney disease, stage 3 (moderate) (5) Hypertension Priority: Secondary Status: Chronic Qualifiers: Hypertension type: essential hypertension Qualified Code(s): I10 - Essential (primary) hypertension (6) COPD (chronic obstructive pulmonary disease) Priority: Secondary Status: Acute Qualifiers: COPD type: emphysema Emphysema type: unspecified Qualified Code(s): J43.9 - Emphysema, unspecified (7) DVT prophylaxis Priority: Secondary Status: Acute Hospital course: Mr. Casper is a 72 year old male - Time Spent with Patient Total time spent providing and/or coordinating discharge services: - Discharge Medications Prescriptions: Sodium Bicarbonate 325 mg PO TID #90 tablet Home Medications: Albuterol Sulfate [Ventolin Hfa] 2 puff IH Q4H PRN 12/25/17 [History] Doxazosin [Cardura] 4 mg PO HS 12/25/17 [History] Glimepiride [Amaryl] 4 mg PO DAILY 12/25/17 [History] Lisinopril [Zestril] 20 mg PO BID 12/25/17 [History] Lovastatin 40 mg PO HS 12/25/17 [History] Metoprolol Succinate 200 mg PO DAILY 12/25/17 [History] Pioglitazone HCl [Actos] 30 mg PO DAILY 12/25/17 [History] Sodium Bicarbonate 325 mg PO TID #90 tablet 12/27/17 [Rx] Allergies/Adverse Reactions: 3 Allergy/AdvReac Type Severity Reaction Status Date / Time No Known Allergies Allergy Verified 12/25/17 18:37 Date of admission: 12/25/17 18:32 Primary care physician: Julisa Vargas CNP - Constitutional Vitals: Temp Pulse Resp BP Pulse Ox 98.2 F 90 16 121/76 95 12/27/17 07:11 12/27/17 07:11 12/27/17 07:11 12/27/17 07:11 12/27/17 07:11 General appearance: Present: A&O X 3, no acute distress, obese, answers questions appropriately Exam: Obese elderly male - Head Head exam: Present: atraumatic, normocephalic - Eye Eye exam: Present: PERRL, conjuntiva pink, sclera anicteric Pupils: Present: PERRL - Neck Neck exam general surgery: Present: supple, trachea midline. Absent: lymphadenopathy - Respiratory Respiratory exam: Present: CTAB. Absent: accessory muscle use, rales, rhonchi, wheezes - Cardiovascular Cardiovascular exam: Present: RRR, +S1, +S2. Absent: diastolic murmur, gallop, rubs, systolic murmur - GI/Abdominal GI/Abdominal exam: Present: normal bowel sounds, soft, no peritoneal signs. Absent: distended, tenderness - Extremities Exam Extremities exam: Present: warm, radial pulses palpable and symmetrical. Absent : calf tenderness, cyanotic, pedal edema - Neurological Exam Neurological exam: Present: CN II-XII intact, oriented X3, no focal deficits. Absent: pronater drift, facial droop, speech deficit - Skin Skin exam: Present: dry, intact - Patient Status Disposition: Home, Self-Care Condition: Fair - Discharge Instructions Instructions: Sodium Bicarbonate (By mouth), Using Oxygen at Home (GEN), Hyperkalemia (DC), Air Travel With Oxygen (GEN) Follow Up With: Julisa Vargas CNP [Primary Care Provider] - (web request 12/27/2017)
[2017-12-27] MEDS: Insulin LISPRO 300 UNITS/3 ML VIAL SQ SCH (08:16)
[2017-12-27] MEDS: Metoprolol XL (24 HR) Succ 50 MG TAB.ER.24H PO SCH (09:06)
[2017-12-27 11:44] VITALS: BP 155/61
--- NOTE | 2017-12-28 08:02 | Electrocardiograph Report ---
[place] [id number] Test Date: 2017-12-25 Pat Name: Brenton Casper Department: 103 Room: 2A23 Gender: M Physical Plant Manager: JUSTINA : 1945 Requested By: Aaron Velarde Order Number: [id number] Reading MD: Onesimo Chao Measurements Intervals [place] Rate: 72 P: 32 NC: 173 QRS: 40 QRSD: 133 T: -9 QT: 359 QTc: 383 Interpretive Statements SINUS RHYTHM INDETERMINATE AXIS RIGHT BUNDLE BRANCH BLOCK Electronically Signed On 12-28-2017 8:00:52 EDT by Onesimo Chao
[2017-12-29 11:25] LABS: Complement Component 3 136 mg/dL (88-201); Complement Component 4 30 mg/dL (10-40)
[2017-12-29 18:18] LABS: Kappa Qnt Free Light Chains 2.69 mg/dL (0.33-1.94); Lambda Qnt Free Light Chains 2.3 mg/dL (0.57-2.63)
[2017-12-29 18:20] LABS: Alpha 2 Globulin (PEP) 1.06 g/dL (0.48-1.05); Beta Globulin (PEP) 0.84 g/dL (0.48-1.10)
[2017-12-30 07:50] LABS: IFE Reflexed NOT DONE
[2017-12-30 13:26] LABS: Myeloperoxidase Ab 0 AU/mL (0-19); Serine Protease-3 Antibody 1 AU/mL (0-19)
== END 2017-12-27 12:52 | disposition home or self-care (01) ==
LOC: EMEROO 16:50 → 2ANU 16:50
PROVIDERS: ADMIT Family Medicine; ATTEND Family Medicine